=== PATIENT | female | born 1965 | race Caucasian/White ===

== ENCOUNTER → 2019-02-28 | Outpatient (CLI) | payer BC | LOC: COL.RAD 09:25 | DX: E04.2 Nontoxic multinodular goiter (principal) ==

== ENCOUNTER → 2019-04-22 | Outpatient (CLI) | payer BC | LOC: MC.RAD 15:54 | DX: Z12.31 Encounter for screening mammogram for malignant neoplasm of breast (principal) ==

== ENCOUNTER → 2021-02-22 | Outpatient (CLI) | payer BC | LOC: MC.RAD 09:29 | DX: Z12.31 Encounter for screening mammogram for malignant neoplasm of breast (principal) ==

== ENCOUNTER → 2023-09-04 | Outpatient (CLI) | payer BC | LOC: MC.RAD 08:08 | DX: Z12.31 Encounter for screening mammogram for malignant neoplasm of breast (principal) ==

== ENCOUNTER 2024-04-03 06:39 | Day surgery (SDC) | payer BC ==
[~2024-04-03] VITALS: Ht 175.3 cm; Wt 64.4 kg
[~2024-04-03 06:39] MED LIST: LR 1,000 ML IV SCH; Ondansetron 4 MG/2 ML VIAL IV PRN
[2024-04-03] MEDS ORDERED: Sod Phosphates Rectal Enema 133 ML bottle RC ONE ×2 (07:00→07:30)
[2024-04-03 07:44] VITALS: BP 109/74; PULSE 80; TEMP 97.1
[2024-04-03] MEDS ORDERED: SYNTHROID0.1 MG/TAB PO (07:44)
--- NOTE | 2024-04-03 07:56 | NUR ---
The patient ambulated back to [facility] independently using a steady gait and appeared to tolerate the activity well. Vital signs obtained. Consent signed. Assessment completed. Home medications reconcilled. The patient reported that her stools are still brown and cloudy. Dr. Gee was notified and orders for a fleets enema were obtained. After the first enema the stool appears immigration judge in color but still cloudy with floating formed stool so a repeat enema was ordered. Warm blanket provided.
--- NOTE | 2024-04-03 08:10 | NUR ---
The patient's second fleets enema was successful and Dr. Gee wants to proceed with the procedure. Consent signed. 20G IV started in right wrist with LR infusing without difficulty.
[2024-04-03] MEDS ORDERED: fentaNYL 50 MCG/ML 2 ML VIAL ONE (08:25)
[2024-04-03] MEDS ORDERED: Lidocaine PF 2% (20 MG/ML) 5 ML VIAL ONE (08:25)
[2024-04-03 09:00] VITALS: BP 111/67; PULSE 87; TEMP 97
--- NOTE | 2024-04-03 09:00 | NUR ---
PATIENT AMBULATED TO CHAIR WITH STEADY GAIT, ASSIST OF 2. ALERT AND AWAKE. DENIES PAIN, NAUSEA AND SHORTNESS OF BREATH. BREATHING REGULAR AND UNLABORED ON ROOM AIR. SKIN WARM AND DRY. IV IN PLACE. NURSE HANDOFF COMPLETED IN ROOM. SEE CHART FOR VITAL SIGNS. PATIENT HAD WATER AND A MUFFIN. BOTH FOOD AND DRINK TOLERATED WELL, NO DYSPHAGIA. CALL LIGHT IN REACH.
[2024-04-03 09:15] VITALS: BP 107/74; PULSE 76
[2024-04-03 09:30] VITALS: BP 119/76; PULSE 65
--- NOTE | 2024-04-03 09:40 | NUR ---
0909: MET WITH PATIENT IN ROOM TO DISCUSS PROCEDURE. 0930: DISCHARGE TEACHING COMPLETED WITH PRINTED EDUCATION AND INSTRUCTIONS SENT HOME WITH PATIENT. PATIENT VERBALIZED UNDERSTANDING OF TEACHING. 0932: IV REMOVED. GAUZE AND COBAN PLACED OVER SITE. 0940: PATIENT DISCHARGED HOME WITH DAUGHTER TRANSPORT.
== END 2024-04-03 09:40 | disposition home or self-care (01) ==
LOC: SDCO 06:39
DX: Z12.11 Encounter for screening for malignant neoplasm of colon (principal)
CPT/HCPCS: J2704; J3010; J7120